=== PATIENT | male | born 1970 | race Caucasian/White ===

== ENCOUNTER 2019-12-31 15:15 | Emergency (ER) | payer MEDICARE, OTHER ==
[~2019-12-31] VITALS: Ht 180.3 cm; Wt 95.3 kg
[~2019-12-31 15:15] MED LIST: CYCLOBENZAPRINE10 MG PO; FLUOXETINE40 MG PO; GABAPENTIN800 MG PO; Lortab 5/500 501 TAB PO; NORCO 5-325 TA1 EACH PO; OMEPRAZOLE10 MG PO; PRINIVIL10 MG PO
[2019-12-31] MEDS ORDERED: MEDROL DOSEPAK4 MG PO (17:18)
[2019-12-31] MEDS ORDERED: AMOXICILLIN500 M2 PO (17:18)
== END 2019-12-31 17:18 | disposition home or self-care (01) ==
LOC: ED 15:15
DX: J40 Bronchitis, not specified as acute or chronic (principal); Z79.899 Other long term (current) drug therapy; Z95.0 Presence of cardiac pacemaker; Z98.61 Coronary angioplasty status